=== PATIENT | female | born 1975 | race Caucasian/White ===

== ENCOUNTER 2016-09-20 14:19 | Inpatient (IN) | payer BC ==
[~2016-09-20] VITALS: Ht 167.6 cm; Wt 67.5 kg
[~2016-09-20 14:19] MED LIST: LEVEMIR SQ; NOVOLOGP2 SQ
[2016-09-20 16:00] VITALS: BP 147/90; PULSE 110; RESP 17; TEMP 98.5; O2SAT 98
[2016-09-20] MEDS ORDERED: MAGNESIUM HYDROXIDE SUSP 30 ML CUP PO PRN (17:00)
[2016-09-20] MEDS ORDERED: DEXTROSE 50% IN WATER 50 ML VIAL(D50) IV PRN (17:00)
[2016-09-20] MEDS ORDERED: BISACODYL 10 MG SUPP RECTAL PRN (17:00)
[2016-09-20] MEDS ORDERED: SODIUM CHLORIDE 0.9% FLUSH 10 ML FLUSH IV FLUSH PRN (17:00)
[2016-09-20] MEDS ORDERED: ONDANSETRON HCL 4 MG/2 ML VIAL IVP PRN (17:00)
[2016-09-20] MEDS ORDERED: traMADol HCL 50 MG TAB PO PRN (17:00)
[2016-09-20] MEDS ORDERED: SENNOSIDES 8.6 MG TAB PO PRN (17:00)
[2016-09-20] MEDS ORDERED: NALOXONE HCL 0.4 MG/ML AMP IV PRN (17:00)
[2016-09-20] MEDS: HEPARIN SODIUM - SQ 10,000 UNITS/ML VIAL SQ SCH ×2 (17:00→21:19)
[2016-09-20] MEDS ORDERED: GLUCAGON 1 MG/ML VIAL OTHER PRN (17:00)
[2016-09-20] MEDS ORDERED: ACETAMINOPHEN 325 MG TAB PO PRN (17:00)
[2016-09-20] MEDS ORDERED: LACTULOSE SYRUP 20 GM/30 ML CUP PO PRN (17:00)
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
[2016-09-20 20:00] VITALS: BP 141/65; PULSE 104; RESP 20; TEMP 98.7; O2SAT 97
--- NOTE | 2016-09-20 20:44 | RADRPT ---
EXAM DATE/TIME: 09/20/2016 20:26 [place] COMPARISON: No previous studies available for comparison. INDICATIONS : Left foot Ulceration MEDICAL HISTORY : Diabetes mellitus type II. SURGICAL HISTORY : None. ENCOUNTER: Initial ACUITY: 1 day PAIN SCORE: 2/10 LOCATION: Left foot FINDINGS: Three view examination of the left foot demonstrates soft tissue swelling grade involving the soft ti ssues between the first and second digits with subcutaneous emphysema. Arthropathy of the midfoot. No fracture. No periosteal reaction The calcaneus is intact. Bony mineralization is normal. CONCLUSION: Soft tissue swelling with subcutaneous edema involving the soft tissues of the first and second digit s.No definite osteomyelitis. Michele Freeman MD on September 20, 2016 at 20:41 Board Certified Radiologist. This report was verified electronically.
[2016-09-20] MEDS: DOCUSATE SODIUM 50 MG/SENNA 8.6 MG TAB PO SCH (21:00)
[2016-09-20] MEDS: INSULIN DETEMIR 100 UNITS/ML VIAL SQ SCH (21:17)
[2016-09-20] MEDS: INSULIN ASPART SUPPLEMENTAL SCALE SQ SCH (21:17)
[2016-09-20] MEDS: SODIUM CHLORIDE 0.9% FLUSH 10 ML FLUSH IV FLUSH SCH (21:18)
[2016-09-20] MEDS: ACETAMINOPHEN 325 MG TAB PO PRN (21:20)
[2016-09-21] VITALS: BP 131/60; PULSE 102; RESP 20; TEMP 97.3; O2SAT 98
[2016-09-21] MEDS: INSULIN ASPART SUPPLEMENTAL SCALE SQ SCH ×4 (04:49→21:22)
[2016-09-21 05:26] LABS: AUTOMATED NEUTROPHIL # 4.5 TH/MM3 (1.8-7.7); BASOPHIL % 0.5 % (0.0-2.0); EOSINOPHIL # 0.4 TH/MM3 (0-0.4); EOSINOPHIL % 4.4 % (0.0-4.0); HEMATOCRIT 31.6 % (35.0-46.0); HEMO FLAGS DIFF FINAL; LYMPH % 32.9 % (9.0-44.0); LYMPHOCYTE # 2.7 TH/MM3 (1.0-4.8); MEAN CELL VOLUME 87.6 FL (80.0-100.0); MEAN CORPUSCULAR HEMOGLOBIN 29.6 PG (27.0-34.0); MEAN CORPUSCULAR HGB CONC 33.8 % (32.0-36.0); MONO % 6.3 % (0.0-8.0); NEUT % 55.9 % (16.0-70.0); PLATELET COUNT 294 TH/MM3 (150-450); RED BLOOD COUNT 3.61 MIL/MM3 (4.00-5.30); RED CELL DISTRIBUTION WIDTH 12.1 % (11.6-17.2); WHITE BLOOD COUNT 8.1 TH/MM3 (4.0-11.0)
[2016-09-21 05:37] LABS: INTERNATIONAL NORMALIZED RATIO 0.9 RATIO; PROTHROMBIN TIME - PATIENT 10.2 SEC (9.8-11.6)
[2016-09-21 05:48] LABS: ANION GAP 7 MEQ/L (5-15); AST (GOT) 7 U/L (15-37); BICARBONATE 27.9 MEQ/L (21.0-32.0); BLOOD UREA NITROGEN 10 MG/DL (7-18); CHLORIDE 105 MEQ/L (98-107); GLOMERULAR FILTRATION RATE 160 ML/MIN (>89); POTASSIUM 3.6 MEQ/L (3.5-5.1); SODIUM (NA) 140 MEQ/L (136-145)
[2016-09-21 05:49] LABS: ALT (GPT) 12 U/L (10-53)
[2016-09-21 05:51] LABS: ALKALINE PHOSPHATASE 112 U/L (45-117); TOTAL BILIRUBIN ADULT 0.2 MG/DL (0.2-1.0)
[2016-09-21 08:00] VITALS: BP 159/70; PULSE 99; RESP 17; TEMP 97.5; O2SAT 98
[2016-09-21] MEDS: SODIUM CHLORIDE 0.9% FLUSH 10 ML FLUSH IV FLUSH SCH ×2 (08:22→22:48)
[2016-09-21] MEDS: DOCUSATE SODIUM 50 MG/SENNA 8.6 MG TAB PO SCH ×2 (08:22→21:00)
[2016-09-21] MEDS: HEPARIN SODIUM - SQ 10,000 UNITS/ML VIAL SQ SCH ×2 (08:22→16:48)
[2016-09-21] MEDS: INSULIN DETEMIR 100 UNITS/ML VIAL SQ SCH ×2 (09:00→21:22)
[2016-09-21 09:37] VITALS: BP 135/62; PULSE 93
--- NOTE | 2016-09-21 10:40 | HHI.PR ---
Subjective Remarks Follow-up for left foot infection. Patient has no complaints. She remains afebrile. Objective Vitals Vital Signs Date Time Temp Pulse Resp B/P Pulse Ox O2 Delivery O2 Flow Rate FiO2 09/21/16 09:37 93 135/62 09/21/16 08:00 97.5 99 17 159/70 98 09/21/16 00:00 97.3 102 20 131/60 98 09/20/16 20:00 98.7 104 20 141/65 97 09/20/16 16:00 98.5 110 17 147/90 98 I/O 09/20/16 09/20/16 09/20/16 09/21/16 09/21/16 09/21/16 07:00 15:00 23:00 07:00 15:00 23:00 Intake Total 240 ml 240 ml Balance 240 ml 240 ml Intake Oral 240 ml 240 ml IV Total 0 ml 0 ml # Voids 1 0 # Bowel Movements 0 0 Result Diagram: 09/21/1644209/21/16442 Objective Remarks Gen NAD CV RRR. no r/m/g Ext left foot positive for erythema between the first and second toes, with blistering and purulent drainage. Medications and IVs Current Medications Insulin Detemir (Levemir Inj) 15 units BID SQ Last administered on 09/20/16 21: 17; Start 09/20/16 at 21:00 Sodium Chloride (NS Flush) 2 ml UNSCH PRN IV FLUSH FLUSH AFTER USING IV ACCESS ; Start 09/20/16 at 17:00 Sodium Chloride (NS Flush) 2 ml BID IV FLUSH Last administered on 09/21/16 08: 22; Start 09/20/16 at 21:00 Acetaminophen (Tylenol) 650 mg Q4H PRN PO TEMP > 100.4; Start 09/20/16 at 17:00 Ondansetron HCl (Zofran Inj) 4 mg Q6H PRN IVP NAUSEA OR VOMITING; Start at 17:00 Heparin Sodium (Porcine) (Heparin Inj) 5,000 units Q8H SQ ; Start 09/20/16 at 17: 00 Naloxone HCl (Narcan Inj) 0.4 mg UNSCH PRN IV SEE LABEL COMMENTS; Start at 17:00 Senna/Docusate Sodium (Neena-Colace) 1 tab BID PO ; Start 09/20/16 at 21:00 Magnesium Hydroxide (Milk Of Magnesia Liq) 30 ml Q12H PRN PO MILD - MODERATE CONSTIPATION; Start 09/20/16 at 17:00 Sennosides (Senokot) 17.2 mg Q12H PRN PO MODERATE - SEVERE CONSTIPATION; Start 09/20/16 at 17:00 Bisacodyl (Dulcolax Supp) 10 mg DAILY PRN RECTAL SEVERE CONSITIPATION; Start at 17:00 Lactulose (Lactulose Liq) 30 ml DAILY PRN PO SEVERE CONSTIPATION; Start at 17:00 Dextrose (D50w (Vial) Inj) 50 ml UNSCH PRN IV HYPOGLYCEMIA-SEE COMMENTS; Start 09/20/16 at 17:00 Glucagon (Glucagon Inj) 1 mg UNSCH PRN OTHER HYPOGLYCEMIA-SEE COMMENTS; Start 09/20/16 at 17:00 Insulin Aspart (NovoLOG SUPPLEMENTAL SCALE) 1 ACHS SLIDING SCALE SQ Last administered on 09/20/16 21:17; Start 09/20/16 at 21:00 Acetaminophen (Tylenol) 650 mg Q4H PRN PO PAIN 1-4, DREW Last administered on 09/20 21:20; Start 09/20/16 at 17:00 Tramadol HCl (Ultram) 50 mg Q8H PRN PO PAIN SCALE 5 TO 10; Start 09/20/16 at 17: 00 A/P Assessment and Plan 41-year-old female with diabetes mellitus who presents for foot infection Diabetic foot ulcer with acute infection: Afebrile with no leukocytosis. Received vancomycin 1 in the ED. Consult podiatry and hold off on antibiotics for now if no further signs of systemic infection pending possible surgical cultures with podiatry. Elevate foot. Tylenol and tramadol as needed for pain. Diabetes mellitus: With recent noncompliance with insulin due to cost. Resume Levemir 15 units twice daily and NovoLog sliding scale. Monitor Accu-Cheks. Case management consult. History of sinus tachycardia: Heart rate is at baseline per patient. Check EKG. DVT prophylaxis: Heparin Discharge Planning Pending consult from life science technical officer. Patient will need continued hospitalization for treatment of the infection with IV antibiotics. Nelsy Flores MD Sep 21, 2016 10:40
--- NOTE | 2016-09-21 10:59 | EKG ---
Date Performed: 09/20/2016 Time Performed: 17:23:18 PTAGE: 41 years EKG: SINUS TACHYCARDIA MARKED LEFT AXIS DEVIATION ABNORMAL ECG NO PREVIOUS TRACING DOCTOR: Danny Scott Interpretating Date/Time 09/21/2016 10:58:02
[2016-09-21 12:00] VITALS: BP 162/73; PULSE 96; RESP 17; TEMP 97.9; O2SAT 96
[2016-09-21 16:00] VITALS: BP 142/67; PULSE 104; RESP 17; TEMP 98.4; O2SAT 99
[2016-09-21 20:00] VITALS: BP 143/65; PULSE 102; RESP 18; TEMP 98.5; O2SAT 96
[2016-09-21] MEDS ORDERED: TEMAZEPAM 7.5 MG CAP PO ONE (21:00)
[2016-09-21] MEDS ORDERED: Vancomycin Consult Pharmacy 1 EA OTHER SCH (21:00)
[2016-09-21] MEDS: ACETAMINOPHEN 325 MG TAB PO PRN (21:24)
[2016-09-21] MEDS: PIPERACIL-TAZO 3.375 GM PREMIX 50 ML IV SCH (22:48)
[2016-09-21] MEDS: VANCOMYCIN INJ 1,000 MG in SODIUM CHLOR 0.9% 250 ML INJ 250 ML IV SCH (22:49)
[2016-09-22] VITALS: BP 120/58; PULSE 80; RESP 17; TEMP 97.8; O2SAT 97
[2016-09-22] MEDS: HEPARIN SODIUM - SQ 10,000 UNITS/ML VIAL SQ SCH ×3 (00:13→16:52)
[2016-09-22 05:11] LABS: HEMATOCRIT 32.6 % (35.0-46.0); MEAN CELL VOLUME 87.9 FL (80.0-100.0); PLATELET COUNT 276 TH/MM3 (150-450); RED BLOOD COUNT 3.71 MIL/MM3 (4.00-5.30); REVIEW FLAG FINAL; WHITE BLOOD COUNT 7.4 TH/MM3 (4.0-11.0)
[2016-09-22] MEDS: PIPERACIL-TAZO 3.375 GM PREMIX 50 ML IV SCH ×3 (05:38→21:17)
[2016-09-22 05:39] LABS: BICARBONATE 27.7 MEQ/L (21.0-32.0); POTASSIUM 3.6 MEQ/L (3.5-5.1)
[2016-09-22] MEDS: INSULIN ASPART SUPPLEMENTAL SCALE SQ SCH ×4 (06:14→21:00)
[2016-09-22] MEDS: VANCOMYCIN INJ 1,000 MG in SODIUM CHLOR 0.9% 250 ML INJ 250 ML IV SCH ×2 (06:15→13:20)
[2016-09-22] MEDS: DOCUSATE SODIUM 50 MG/SENNA 8.6 MG TAB PO SCH ×2 (07:57→21:00)
[2016-09-22 08:00] VITALS: BP 131/62; PULSE 95; RESP 16; TEMP 97; O2SAT 98
[2016-09-22] MEDS: INSULIN DETEMIR 100 UNITS/ML VIAL SQ SCH ×2 (08:08→21:00)
[2016-09-22] MEDS: SODIUM CHLORIDE 0.9% FLUSH 10 ML FLUSH IV FLUSH SCH ×2 (08:08→21:10)
--- NOTE | 2016-09-22 08:30 | HHI.PR ---
Subjective Remarks f/u for left foot infection. patient had bedside I & D yesterday. She has no complaints. She was asking for insulin script on discharge so she can have insulin. her nurse is at the bedside. remains afebrile. per nurse [employer] Dean said for no one to unwrap the bandage and that she will monitor. Objective Vitals Vital Signs Date Time Temp Pulse Resp B/P Pulse Ox O2 Delivery O2 Flow Rate FiO2 09/22/16 00:00 97.8 80 17 120/58 97 09/22/16 00:00 Room Air 09/21/16 20:00 98.5 102 18 143/65 96 09/21/16 20:00 Room Air 09/21/16 16:00 98.4 104 17 142/67 99 09/21/16 12:00 97.9 96 17 162/73 96 09/21/16 09:37 93 135/62 I/O 09/21/16 09/21/16 09/21/16 09/22/16 09/22/16 09/22/16 07:00 15:00 23:00 07:00 15:00 23:00 Intake Total 240 ml 0 ml 530 ml 580 ml Balance 240 ml 0 ml 530 ml 580 ml Intake Oral 240 ml 0 ml 480 ml 280 ml IV Total 0 ml 50 ml 300 ml # Voids 0 2 2 2 # Bowel Movements 0 0 1 Result Diagram: 09/22/16 0454 09/22/16 0454 Objective Remarks Gen NAD CV RRR. no r/m/g Ext left foot in bandage and zaina wrap. Per nurse Pod stated did not unwrap. Medications and IVs Current Medications Insulin Detemir (Levemir Inj) 15 units BID SQ Last administered on 09/22/16 08: 08; Start 09/20/16 at 21:00 Sodium Chloride (NS Flush) 2 ml UNSCH PRN IV FLUSH FLUSH AFTER USING IV ACCESS ; Start 09/20/16 at 17:00 Sodium Chloride (NS Flush) 2 ml BID IV FLUSH Last administered on 09/22/16 08: 08; Start 09/20/16 at 21:00 Acetaminophen (Tylenol) 650 mg Q4H PRN PO TEMP > 100.4; Start 09/20/16 at 17:00 Ondansetron HCl (Zofran Inj) 4 mg Q6H PRN IVP NAUSEA OR VOMITING; Start at 17:00 Heparin Sodium (Porcine) (Heparin Inj) 5,000 units Q8H SQ Last administered on 09/22/16 07:59; Start 09/20/16 at 17:00 Naloxone HCl (Narcan Inj) 0.4 mg UNSCH PRN IV SEE LABEL COMMENTS; Start at 17:00 Senna/Docusate Sodium (Neena-Colace) 1 tab BID PO ; Start 09/20/16 at 21:00 Magnesium Hydroxide (Milk Of Magnesia Liq) 30 ml Q12H PRN PO MILD - MODERATE CONSTIPATION; Start 09/20/16 at 17:00 Sennosides (Senokot) 17.2 mg Q12H PRN PO MODERATE - SEVERE CONSTIPATION; Start 09/20/16 at 17:00 Bisacodyl (Dulcolax Supp) 10 mg DAILY PRN RECTAL SEVERE CONSITIPATION; Start at 17:00 Lactulose (Lactulose Liq) 30 ml DAILY PRN PO SEVERE CONSTIPATION; Start at 17:00 Dextrose (D50w (Vial) Inj) 50 ml UNSCH PRN IV HYPOGLYCEMIA-SEE COMMENTS; Start 09/20/16 at 17:00 Glucagon (Glucagon Inj) 1 mg UNSCH PRN OTHER HYPOGLYCEMIA-SEE COMMENTS; Start 09/20/16 at 17:00 Insulin Aspart (NovoLOG SUPPLEMENTAL SCALE) 1 ACHS SLIDING SCALE SQ Last administered on 09/22/16 06:14; Start 09/20/16 at 21:00 Acetaminophen (Tylenol) 650 mg Q4H PRN PO PAIN 1-4, DREW Last administered on 09/21 21:24; Start 09/20/16 at 17:00 Tramadol HCl (Ultram) 50 mg Q8H PRN PO PAIN SCALE 5 TO 10; Start 09/20/16 at 17: 00 Temazepam 7.5 mg 7.5 mg ONCE ONCE PO Last administered on 09/21/16 22:56; Start 09/21/16 at 21:00; Stop 09/21/16 at 21:01; Status DC Vancomycin HCl 1000 mg/Sodium Chloride 250 ml @ 250 mls/hr Q8HR IV Last administered on 09/22/16 06:15; Start 09/21/16 at 22:00 Pharmacy Profile Note 0 ml @ 0 mls/hr UNSCH OTHER ; Start 09/21/16 at 21:00 Piperacillin Sod/ Tazobactam Sod (Zosyn 3.375 Gm Premix) 50 ml @ 100 mls/hr Q8H IV Last administered on 09/22/16t 05:38; Start 09/21/16 at 21:00 Miscellaneous Information SPECIFIC LAB TO BE DRAWN:VANCO TROUGH DATE TO BE DRJesus.. ONCE ONCE .XX ; Start 09/22/16 at 21:45; Stop 09/22/16 at 21:46 A/P Assessment and Plan 41-year-old female with diabetes mellitus who presents for foot infection Diabetic foot ulcer with acute infection: -s/p I and D by Pod last night. Pending note. -on vancomycin and Zosyn pending cultures. Diabetes mellitus: -With recent noncompliance with insulin due to cost. -continue Levemir 15 units twice daily and NovoLog sliding scale. Monitor Accu- Cheks. -Will give patient 3 month supply of insulin. Patient told need to establish with a PCP. History of sinus tachycardia: -Resolved. DVT prophylaxis: Heparin Discharge Planning Patient requires continual hospitalization due to severity of infection. She is on IV antibiotics pending cultures. Nelsy Flores MD Sep 22, 2016 08:29
[2016-09-22 12:00] VITALS: BP 147/63; PULSE 94; RESP 17; TEMP 97.6; O2SAT 96
[2016-09-22 16:00] VITALS: BP 120/58; PULSE 95; RESP 17; TEMP 97.8; O2SAT 98
[2016-09-22 20:00] VITALS: BP 133/64; PULSE 92; RESP 17; TEMP 96.8; O2SAT 97
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
[2016-09-22] MEDS: ACETAMINOPHEN 325 MG TAB PO PRN (21:14)
[2016-09-22] MEDS ORDERED: PHARMACY ORDERED LAB ONE (21:45)
--- NOTE | 2016-09-22 21:57 | PD.POD ---
Subjective Podiatric Problems s/p left foot bedside I&D on 09/21/16. Patient states she is not having pain only a mild discomfort. She states that the foot looks much better then it has in the last two days. She denies any n/v/f/h/c/sob. Pain score: 2 Past Med/Surg/Social History Social History Smoking Status: Never Smoker Objective Vital Signs Vital Signs Date Time Temp Pulse Resp B/P Pulse Ox O2 Delivery O2 Flow Rate FiO2 09/22/16 20:00 96.8 92 17 133/64 97 09/22/16 16:00 97.8 95 17 120/58 98 09/22/16 12:00 97.6 94 17 147/63 96 09/22/16 08:00 97.0 95 16 131/62 98 09/22/16 00:00 97.8 80 17 120/58 97 09/22/16 00:00 Room Air Coded Allergies: No Known Allergies (Unverified , 09/20/16) Physical Exam Remarks Exam is unchanged from consult with except for the left foot wound: Left foot first interspace ulceration 2.0cm x 0.75cm x 0.75 cm with dorsal and plantar tunneling of 0.75cm, wound bed is fibro granular, deep probing but no exposed bone, mild serous drainage but no purulence, mild trevor wound erythema isolated to less then 0.5cm from the wound dorsally and decreased from yesterday Assessment & Plan A/P 1)left foot stage II/III ulcer with resolving cellulitis -s/p bedside I&D 09/21/16 -cont daily wound care with packing -cont iv abx until wound cxs are finalized and po abx can be determined -pt will need HHC at time of d/c as well as access to the [facility] for wound care and diabetes management -will cont to follow while in house, no surgical plans at this time Adriane Stafford DPM Sep 22, 2016 21:57
[2016-09-23] VITALS: BP 138/56; PULSE 92; RESP 20; TEMP 97.4; O2SAT 100
[2016-09-23] MEDS: HEPARIN SODIUM - SQ 10,000 UNITS/ML VIAL SQ SCH ×3 (01:02→17:02)
[2016-09-23] MEDS: VANCOMYCIN INJ 1,000 MG in SODIUM CHLOR 0.9% 250 ML INJ 250 ML IV SCH ×4 (01:02→22:08)
[2016-09-23] MEDS: PIPERACIL-TAZO 3.375 GM PREMIX 50 ML IV SCH ×3 (06:04→20:40)
[2016-09-23] MEDS: INSULIN ASPART SUPPLEMENTAL SCALE SQ SCH ×4 (06:05→21:00)
[2016-09-23 08:00] VITALS: BP 129/58; PULSE 91; RESP 18; TEMP 96.6; O2SAT 100
[2016-09-23] MEDS: DOCUSATE SODIUM 50 MG/SENNA 8.6 MG TAB PO SCH ×2 (09:00→20:39)
[2016-09-23] MEDS: SODIUM CHLORIDE 0.9% FLUSH 10 ML FLUSH IV FLUSH SCH ×2 (09:01→20:40)
[2016-09-23] MEDS: INSULIN DETEMIR 100 UNITS/ML VIAL SQ SCH ×2 (09:03→21:00)
--- NOTE | 2016-09-23 09:11 | HHI.PR ---
Subjective Remarks f/u for foot infection. patient has no complaints. BS running 90s-200s. no fevers. denied any pain. Objective Vitals Vital Signs Date Time Temp Pulse Resp B/P Pulse Ox O2 Delivery O2 Flow Rate FiO2 09/23/16 08:00 96.6 91 18 129/58 100 09/23/16 00:00 97.4 92 20 138/56 100 09/22/16 20:00 96.8 92 17 133/64 97 09/22/16 16:00 97.8 95 17 120/58 98 09/22/16 12:00 97.6 94 17 147/63 96 I/O 09/22/16 09/22/16 09/22/16 09/23/16 09/23/16 09/23/16 07:00 15:00 23:00 07:00 15:00 23:00 Intake Total 580 ml 540 ml 480 ml 516 ml Balance 580 ml 540 ml 480 ml 516 ml Intake Oral 280 ml 240 ml 480 ml 240 ml IV Total 300 ml 300 ml 276 ml # Voids 2 2 2 1 # Bowel Movements 0 Result Diagram: 09/22/16 0454 09/22/164 Objective Remarks Gen NAD CV RRR. no r/m/g Ext left foot in bandage and zaina wrap. Per nurse Pod stated did not unwrap. Medications and IVs Current Medications Insulin Detemir (Levemir Inj) 15 units BID SQ Last administered on 09/23/16 09: 03; Start 09/20/16 at 21:00 Sodium Chloride (NS Flush) 2 ml UNSCH PRN IV FLUSH FLUSH AFTER USING IV ACCESS ; Start 09/20/16 at 17:00 Sodium Chloride (NS Flush) 2 ml BID IV FLUSH Last administered on 09/23/16 09: 01; Start 09/20/16 at 21:00 Acetaminophen (Tylenol) 650 mg Q4H PRN PO TEMP > 100.4 Last administered on 09/22 11:59; Start 09/20/16 at 17:00 Ondansetron HCl (Zofran Inj) 4 mg Q6H PRN IVP NAUSEA OR VOMITING; Start at 17:00 Heparin Sodium (Porcine) (Heparin Inj) 5,000 units Q8H SQ Last administered on 09/23/16 09:01; Start 09/20/16 at 17:00 Naloxone HCl (Narcan Inj) 0.4 mg UNSCH PRN IV SEE LABEL COMMENTS; Start at 17:00 Senna/Docusate Sodium (Neena-Colace) 1 tab BID PO ; Start 09/20/16 at 21:00 Magnesium Hydroxide (Milk Of Magnesia Liq) 30 ml Q12H PRN PO MILD - MODERATE CONSTIPATION; Start 09/20/16 at 17:00 Sennosides (Senokot) 17.2 mg Q12H PRN PO MODERATE - SEVERE CONSTIPATION; Start 09/20/16 at 17:00 Bisacodyl (Dulcolax Supp) 10 mg DAILY PRN RECTAL SEVERE CONSITIPATION; Start at 17:00 Lactulose (Lactulose Liq) 30 ml DAILY PRN PO SEVERE CONSTIPATION; Start at 17:00 Dextrose (D50w (Vial) Inj) 50 ml UNSCH PRN IV HYPOGLYCEMIA-SEE COMMENTS; Start 09/20/16 at 17:00 Glucagon (Glucagon Inj) 1 mg UNSCH PRN OTHER HYPOGLYCEMIA-SEE COMMENTS; Start 09/20/16 at 17:00 Insulin Aspart (NovoLOG SUPPLEMENTAL SCALE) 1 ACHS SLIDING SCALE SQ Last administered on 09/22/16 21:00; Start 09/20/16 at 21:00 Acetaminophen (Tylenol) 650 mg Q4H PRN PO PAIN 1-4, DREW Last administered on 09/22 21:14; Start 09/20/16 at 17:00 Tramadol HCl (Ultram) 50 mg Q8H PRN PO PAIN SCALE 5 TO 10; Start 09/20/16 at 17: 00 Temazepam 7.5 mg 7.5 mg ONCE ONCE PO Last administered on 09/21/16 22:56; Start 09/21/16 at 21:00; Stop 09/21/16 at 21:01; Status DC Vancomycin HCl 1000 mg/Sodium Chloride 250 ml @ 250 mls/hr Q8HR IV Last administered on 09/23/16 06:38; Start 09/21/16 at 22:00 Pharmacy Profile Note 0 ml @ 0 mls/hr UNSCH OTHER ; Start 09/21/16 at 21:00 Piperacillin Sod/ Tazobactam Sod (Zosyn 3.375 Gm Premix) 50 ml @ 100 mls/hr Q8H IV Last administered on 09/23/16 06:04; Start 09/21/16 at 21:00 Miscellaneous Information SPECIFIC LAB TO BE DRAWN:VANCO TROUGH DATE TO BE DRJesus.. ONCE ONCE .XX Last administered on 09/22/16 21:45; Start 09/22/16 at 21: 45; Stop 09/22/16 at 21:46; Status DC A/P Assessment and Plan 41-year-old female with diabetes mellitus who presents for foot infection Diabetic foot ulcer with acute infection: -s/p I and D by Pod on 09/21/16. -on vancomycin and Zosyn pending cultures. Diabetes mellitus: -With recent noncompliance with insulin due to cost. BS labile so will continue with current regimen. -continue Levemir 15 units twice daily and NovoLog sliding scale. Monitor Accu- Cheks. -Will give patient 3 month supply of insulin. Patient told need to establish with a PCP. History of sinus tachycardia: -Resolved. DVT prophylaxis: Heparin Discharge Planning Patient requires continual hospitalization due to severity of infection. She is on IV antibiotics pending cultures. Nelsy Flores MD Sep 23, 2016 09:11
--- NOTE | 2016-09-23 11:57 | HHI.FF ---
Face to Face Verification Diagnosis: (1) Diabetic infection of left foot (2) Peripheral neuropathy Home Health Nursing Order: Medical education Signs/symptoms of disease process Diabetic education Medication education-adverse effect Wound care and dressing changes I have seen patient Stefani Willingham on 09/23/16. My clinical findings support the need for the requested home health care services because: Med compliance is questionable I certify that my clinical findings support that this patient is homebound because: Unsteady gait/balance Nelsy Flores MD Sep 23, 2016 11:57
[2016-09-23 12:00] VITALS: BP 146/77; PULSE 92; RESP 18; TEMP 97.6; O2SAT 99
[2016-09-23 16:00] VITALS: BP 119/72; PULSE 96; RESP 18; TEMP 97.6; O2SAT 97
[2016-09-23 20:00] VITALS: BP 121/56; PULSE 90; RESP 18; TEMP 97.5; O2SAT 98
[2016-09-24] VITALS: BP 122/58; PULSE 89; RESP 18; TEMP 96.6; O2SAT 99
[2016-09-24] MEDS: PIPERACIL-TAZO 3.375 GM PREMIX 50 ML IV SCH ×3 (05:07→22:39)
[2016-09-24] MEDS: HEPARIN SODIUM - SQ 10,000 UNITS/ML VIAL SQ SCH ×3 (05:09→18:50)
[2016-09-24] MEDS: INSULIN ASPART SUPPLEMENTAL SCALE SQ SCH ×4 (05:27→22:50)
[2016-09-24] MEDS: VANCOMYCIN INJ 1,000 MG in SODIUM CHLOR 0.9% 250 ML INJ 250 ML IV SCH ×3 (05:37→22:39)
[2016-09-24 08:00] VITALS: BP 139/67; PULSE 99; RESP 20; TEMP 96.4; O2SAT 100
--- NOTE | 2016-09-24 08:51 | HHI.PR ---
Subjective Remarks f/u for infection. patient stated he infection has drastically improved. Patient stated that the bandages were changed last night. She has pictures of the wound infection on her iPhone. Patient is asking for Restoril for her insomnia. Otherwise she may remains afebrile. Objective Vitals Vital Signs Date Time Temp Pulse Resp B/P Pulse Ox O2 Delivery O2 Flow Rate FiO2 09/24/16 08:00 96.4 99 20 139/67 100 09/24/16 00:00 96.6 89 18 122/58 99 09/23/16 20:00 97.5 90 18 121/56 98 09/23/16 16:00 97.6 96 18 119/72 97 09/23/16 12:00 97.6 92 18 146/77 99 I/O 09/23/16 09/23/16 09/23/16 09/24/16 09/24/16 09/24/16 07:00 15:00 23:00 07:00 15:00 23:00 Intake Total 516 ml 800 ml 720 ml 300 ml Output Total 2 ml 300 ml Balance 516 ml 798 ml 720 ml 0 ml Intake Oral 240 ml 800 ml 720 ml 240 ml IV Total 276 ml 60 ml Output Urine Total 300 ml Stool Total 2 ml # Voids 1 3 1 # Bowel Movements 0 0 Result Diagram: 09/22/16 0454 09/24/16 0457 Objective Remarks Gen NAD CV RRR. no r/m/g Ext left foot in bandage and zaina wrap. Pictures from last night showed left foot with erythema between the first and second toe with mild purulent discharge. Swelling has improved drastically. Medications and IVs Current Medications Insulin Detemir (Levemir Inj) 15 units BID SQ Last administered on 09/23/16 21: 00; Start 09/20/16 at 21:00 Sodium Chloride (NS Flush) 2 ml UNSCH PRN IV FLUSH FLUSH AFTER USING IV ACCESS ; Start 09/20/16 at 17:00 Sodium Chloride (NS Flush) 2 ml BID IV FLUSH Last administered on 09/23/16 20: 40; Start 09/20/16 at 21:00 Acetaminophen (Tylenol) 650 mg Q4H PRN PO TEMP > 100.4 Last administered on 09/22 11:59; Start 09/20/16 at 17:00 Ondansetron HCl (Zofran Inj) 4 mg Q6H PRN IVP NAUSEA OR VOMITING; Start at 17:00 Heparin Sodium (Porcine) (Heparin Inj) 5,000 units Q8H SQ Last administered on 09/24/16 05:09; Start 09/20/16 at 17:00 Naloxone HCl (Narcan Inj) 0.4 mg UNSCH PRN IV SEE LABEL COMMENTS; Start at 17:00 Senna/Docusate Sodium (Neena-Colace) 1 tab BID PO ; Start 09/20/16 at 21:00 Magnesium Hydroxide (Milk Of Magnesia Liq) 30 ml Q12H PRN PO MILD - MODERATE CONSTIPATION; Start 09/20/16 at 17:00 Sennosides (Senokot) 17.2 mg Q12H PRN PO MODERATE - SEVERE CONSTIPATION; Start 09/20/16 at 17:00 Bisacodyl (Dulcolax Supp) 10 mg DAILY PRN RECTAL SEVERE CONSITIPATION; Start at 17:00 Lactulose (Lactulose Liq) 30 ml DAILY PRN PO SEVERE CONSTIPATION; Start at 17:00 Dextrose (D50w (Vial) Inj) 50 ml UNSCH PRN IV HYPOGLYCEMIA-SEE COMMENTS; Start 09/20/16 at 17:00 Glucagon (Glucagon Inj) 1 mg UNSCH PRN OTHER HYPOGLYCEMIA-SEE COMMENTS; Start 09/20/16 at 17:00 Insulin Aspart (NovoLOG SUPPLEMENTAL SCALE) 1 ACHS SLIDING SCALE SQ Last administered on 09/23/16 21:00; Start 09/20/16 at 21:00 Acetaminophen (Tylenol) 650 mg Q4H PRN PO PAIN 1-4, DREW Last administered on 09/22 21:14; Start 09/20/16 at 17:00 Tramadol HCl (Ultram) 50 mg Q8H PRN PO PAIN SCALE 5 TO 10; Start 09/20/16 at 17: 00 Temazepam 7.5 mg 7.5 mg ONCE ONCE PO Last administered on 09/21/16 22:56; Start 09/21/16 at 21:00; Stop 09/21/16 at 21:01; Status DC Vancomycin HCl 1000 mg/Sodium Chloride 250 ml @ 250 mls/hr Q8HR IV Last administered on 09/24/16 05:37; Start 09/21/16 at 22:00 Pharmacy Profile Note 0 ml @ 0 mls/hr UNSCH OTHER ; Start 09/21/16 at 21:00 Piperacillin Sod/ Tazobactam Sod (Zosyn 3.375 Gm Premix) 50 ml @ 100 mls/hr Q8H IV Last administered on 09/24/16 05:07; Start 09/21/16 at 21:00 Miscellaneous Information SPECIFIC LAB TO BE DRAWN:VANCO TROUGH DATE TO BE DRJesus.. ONCE ONCE .XX Last administered on 09/22/16 21:45; Start 09/22/16 at 21: 45; Stop 09/22/16 at 21:46; Status DC A/P Assessment and Plan 41-year-old female with diabetes mellitus who presents for foot infection Diabetic foot ulcer with acute infection: -s/p I and D by Pod on 09/21/16. -Wound cultures growing MRSA and group B beta strep pending sensitivity. -on vancomycin and Zosyn. -Will continue IV antibiotics for 1-2 more days. -Per early childhood director pt will need HHC at time of d/c as well as access to the [facility] for wound care and diabetes management. Case management already aware of orders. Diabetes mellitus: -With recent noncompliance with insulin due to cost. BS labile so will continue with current regimen. -continue Levemir 15 units twice daily and NovoLog sliding scale. Monitor Accu- Cheks. -Will give patient 3 month supply of insulin. Patient's insurance runs out this month. Patient told need to establish with a PCP. History of sinus tachycardia: -Resolved. DVT prophylaxis: Heparin Discharge Planning Due to severity of wound infection patient requires IV antibiotics pending final wound cultures. Patient will also need 3 month supply of insulin upon discharge. Orders for home health for wound care already placed. Nelsy Flores MD Sep 24, 2016 08:51
[2016-09-24] MEDS ORDERED: TEMAZEPAM 7.5 MG CAP PO PRN (09:00)
[2016-09-24] MEDS: DOCUSATE SODIUM 50 MG/SENNA 8.6 MG TAB PO SCH ×2 (09:00→21:00)
[2016-09-24] MEDS: INSULIN DETEMIR 100 UNITS/ML VIAL SQ SCH ×2 (09:54→22:49)
[2016-09-24 12:00] VITALS: BP 144/66; PULSE 92; RESP 20; TEMP 97.3; O2SAT 99
[2016-09-24 16:00] VITALS: BP 150/70; PULSE 94; RESP 18; TEMP 97.6; O2SAT 100
[2016-09-24 20:00] VITALS: BP 160/74; PULSE 98; RESP 18; TEMP 98.5; O2SAT 99
[2016-09-24] MEDS: SODIUM CHLORIDE 0.9% FLUSH 10 ML FLUSH IV FLUSH SCH (22:40)
[2016-09-25] VITALS: BP 153/67; PULSE 87; RESP 18; TEMP 96.9; O2SAT 98
[2016-09-25] MEDS: HEPARIN SODIUM - SQ 10,000 UNITS/ML VIAL SQ SCH ×3 (01:56→17:16)
[2016-09-25] MEDS: VANCOMYCIN INJ 1,000 MG in SODIUM CHLOR 0.9% 250 ML INJ 250 ML IV SCH ×3 (06:45→21:24)
[2016-09-25] MEDS: PIPERACIL-TAZO 3.375 GM PREMIX 50 ML IV SCH (06:45)
[2016-09-25] MEDS: INSULIN ASPART SUPPLEMENTAL SCALE SQ SCH ×4 (06:51→21:35)
[2016-09-25 08:00] VITALS: BP 131/61; PULSE 89; RESP 18; TEMP 96.7; O2SAT 99
--- NOTE | 2016-09-25 08:31 | HHI.PR ---
Subjective Remarks This is a pleasant 41 y/o Female with DM II, who was admitted with foot Cellulitis, has history of Osteomyelitis in the right fourth toe status post Amputation, on IV Vancomycin, seen in her bedroom in the presence of female nurse Miss Quintero. pictures taken with her Cellphone about her last Wound care performed yesterday, not yet ready for discharge continue with good granulation, will discuss with Robotics Technician won't be able to get her for [facility]. Objective Vital Signs Date Time Temp Pulse Resp B/P Pulse Ox O2 Delivery O2 Flow Rate FiO2 09/25/16 07:37 Room Air 09/25/16 00:00 96.9 87 18 153/67 98 09/24/16 20:00 98.5 98 18 160/74 99 09/24/16 16:00 97.6 94 18 150/70 100 09/24/16 12:00 97.3 92 20 144/66 99 I/O 09/24/16 09/24/16 09/24/16 09/25/16 09/25/16 09/25/16 07:00 15:00 23:00 07:00 15:00 23:00 Intake Total 300 ml 1000 ml 480 ml 750 ml Output Total 300 ml 1600 ml 950 ml 950 ml Balance 0 ml -600 ml -470 ml -200 ml Intake Oral 240 ml 1000 ml 480 ml 450 ml IV Total 60 ml 300 ml Output Urine Total 300 ml 1600 ml 950 ml 950 ml # Bowel Movements 0 1 0 0 Result Diagram: 09/22/16 0454 09/24/16 0457 Imaging Last Impressions Foot X-Ray 09/20/16 0000 Signed Impressions: Service Date/Time: Tuesday, September 20, 2016 20:26 - CONCLUSION: Soft tissue swelling with subcutaneous edema involving the soft tissues of the first and second digits.No definite osteomyelitis. Michele Freeman MD Procedures Status post I and D bedside. Other Results Laboratory Tests Test 09/21/16 09/22/16 09/22/16 09/23/16 04:43 04:54 22:45 04:48 Neutrophils (%) (Auto) 55.9 % Lymphocytes (%) (Auto) 32.9 % Monocytes (%) (Auto) 6.3 % Eosinophils (%) (Auto) 4.4 % Basophils (%) (Auto) 0.5 % Neutrophils # (Auto) 4.5 TH/MM3 Lymphocytes # (Auto) 2.7 TH/MM3 Monocytes # (Auto) 0.5 TH/MM3 Eosinophils # (Auto) 0.4 TH/MM3 Basophils # (Auto) 0.0 TH/MM3 CBC Comment DIFF FINAL Differential Comment Prothrombin Time 10.2 SEC Prothromb Time International 0.9 RATIO Ratio Total Bilirubin 0.2 MG/DL Aspartate Amino Transf 7 U/L (AST/SGOT) Alanine Aminotransferase 12 U/L (ALT/SGPT) Alkaline Phosphatase 112 U/L Total Protein 6.7 GM/DL Albumin 2.3 GM/DL White Blood Count 7.4 TH/MM3 Red Blood Count 3.71 MIL/MM3 Hemoglobin 10.7 GM/DL Hematocrit 32.6 % Mean Corpuscular Volume 87.9 FL Mean Corpuscular Hemoglobin 29.0 PG Mean Corpuscular Hemoglobin 33.0 % Concent Red Cell Distribution Width 12.0 % Platelet Count 276 TH/MM3 Mean Platelet Volume 7.9 FL Sodium Level 139 MEQ/L Potassium Level 3.6 MEQ/L Chloride Level 105 MEQ/L Carbon Dioxide Level 27.7 MEQ/L Anion Gap 6 MEQ/L Blood Urea Nitrogen 12 MG/DL Random Glucose 183 MG/DL Calcium Level 8.6 MG/DL Vancomycin Level Trough 12.8 MCG/ML Erythrocyte Sedimentation Rate 74 mm/hr C-Reactive Protein 1.51 MG/DL Test 09/24/16 04:57 Creatinine 0.49 MG/DL Estimat Glomerular Filtration 138 ML/MIN Rate Objective Remarks GENERAL: Alert and oriented x 3. No Acute Distress. SKIN: Warm and dry. HEAD: Atraumatic. Normocephalic. EYES: Pupils equal and round. No scleral icterus. No injection or drainage. ENT: No nasal bleeding or discharge. Mucous membranes pink and moist. NECK: Trachea midline. No JVD. CARDIOVASCULAR: Regular rate and rhythm. RESPIRATORY: No accessory muscle use. Clear to auscultation. Breath sounds equal bilaterally. GASTROINTESTINAL: Abdomen soft, non-tender, nondistended. Hepatic and splenic margins not palpable. MUSCULOSKELETAL: Left foot dressed. NEUROLOGICAL: Awake and alert. No obvious cranial nerve deficits. Motor grossly within normal limits. Five out of 5 muscle strength in the arms and legs. Normal speech. PSYCHIATRIC: Appropriate mood and affect; insight and judgment normal. Medications and IVs Current Medications Medications (Trade) Dose Ordered Sig/[place] Route Start Time Stop Time Status Last Admin (Levemir Inj) 15 units BID SQ 09/20/16 21:00 09/24/16 22:49 (NS Flush) 2 ml UNSCH PRN IV FLUSH 09/20/16 17:00 (NS Flush) 2 ml BID IV FLUSH 09/20/16 21:00 09/24/16 22:40 (Tylenol) 650 mg Q4H PRN PO 09/20/16 17:00 09/22/16 11:59 (Zofran Inj) 4 mg Q6H PRN IVP 09/20/16 17:00 (Heparin Inj) 5,000 units Q8H SQ 09/20/16 17:00 09/25/16 01:56 (Narcan Inj) 0.4 mg UNSCH PRN IV 09/20/16 17:00 (Neena-Colace) 1 tab BID PO 09/20/16 21:00 (Milk Of Magnesia Liq) 30 ml Q12H PRN PO 09/20/16 17:00 (Senokot) 17.2 mg Q12H PRN PO 09/20/16 17:00 (Dulcolax Supp) 10 mg DAILY PRN RECTAL 09/20/16 17:00 (Lactulose Liq) 30 ml DAILY PRN PO 09/20/16 17:00 (D50w (Vial) Inj) 50 ml UNSCH PRN IV 09/20/16 17:00 (Glucagon Inj) 1 mg UNSCH PRN OTHER 09/20/16 17:00 (Tylenol) 650 mg Q4H PRN PO 09/20/16 17:00 09/22/16 21:14 Tramadol HCl 50 mg 50 mg Q8H PRN PO 09/20/16 17:00 Vancomycin HCl 1000 mg/Sodium Chloride 250 ml @ 250 mls/hr Q8HR IV 09/21/16 22:00 09/25/16 06:45 Pharmacy Profile Note 0 ml @ 0 mls/hr UNSCH OTHER 09/21/16 21:00 (Zosyn 3.375 Gm Premix) 50 ml @ 100 mls/hr Q8H IV 09/21/16 21:00 09/25/16 06:45 (Restoril) 7.5 mg HS PRN PO 09/24/16 09:00 A/P Assessment and Plan Diabetic Left foot ulcer with acute infection: -s/p I and D by Pod on 09/21/16. -Wound cultures growing MRSA and group B beta strep sensitivity in place -Vancomycin will continue even sensitivity states may change to Oral medicine, Discontinue Zosyn. -Per digital director pt will need [facility] at time of d/c as well as access to the [facility] for wound care and diabetes management. but not able to do so the patient has no Insurance, will follow if the Wound care may be done in House by Doctor Flores. Diabetes mellitus: Better control. -With recent noncompliance with insulin due to cost. BS labile so will continue with current regimen. -continue Levemir 15 units twice daily and NovoLog sliding scale. Monitor Accu- Cheks. -Will give patient 3 month supply of insulin. Patient's insurance runs out this month. Patient told need to establish with a PCP. DVT prophylaxis: Heparin Discharge Planning Will try to discharge tomorrow if wound care may be done inhouse by Doctor Flores. Jerry Iraheta MD Sep 25, 2016 08:31
[2016-09-25] MEDS: DOCUSATE SODIUM 50 MG/SENNA 8.6 MG TAB PO SCH ×2 (08:38→21:00)
[2016-09-25] MEDS: SODIUM CHLORIDE 0.9% FLUSH 10 ML FLUSH IV FLUSH SCH ×2 (08:54→21:24)
[2016-09-25] MEDS: INSULIN DETEMIR 100 UNITS/ML VIAL SQ SCH ×2 (08:59→21:34)
[2016-09-25 12:00] VITALS: BP 168/75; PULSE 95; RESP 16; TEMP 98.5; O2SAT 98
[2016-09-25 16:00] VITALS: BP 140/66; PULSE 94; RESP 16; TEMP 96.6; O2SAT 97
[2016-09-25 22:08] VITALS: BP 142/84; PULSE 97; RESP 20; TEMP 97.9; O2SAT 99
[2016-09-26] VITALS: BP 134/64; PULSE 93; RESP 20; TEMP 98.1; O2SAT 99
[2016-09-26] MEDS: VANCOMYCIN INJ 1,000 MG in SODIUM CHLOR 0.9% 250 ML INJ 250 ML IV SCH (05:48)
[2016-09-26] MEDS: INSULIN ASPART SUPPLEMENTAL SCALE SQ SCH ×2 (07:00→11:15)
[2016-09-26 08:00] VITALS: BP 141/66; PULSE 94; RESP 18; TEMP 97.3; O2SAT 99
[2016-09-26] MEDS: HEPARIN SODIUM - SQ 10,000 UNITS/ML VIAL SQ SCH ×2 (08:02)
[2016-09-26] MEDS: SODIUM CHLORIDE 0.9% FLUSH 10 ML FLUSH IV FLUSH SCH (08:03)
[2016-09-26] MEDS: DOCUSATE SODIUM 50 MG/SENNA 8.6 MG TAB PO SCH (08:03)
[2016-09-26] MEDS: INSULIN DETEMIR 100 UNITS/ML VIAL SQ SCH (08:11)
--- NOTE | 2016-09-26 08:11 | HHI.PR ---
Subjective Remarks This is a pleasant 41 y/o Female with DM II, who was admitted with foot Cellulitis, has history of Osteomyelitis in the right fourth toe status post Amputation, on IV Vancomycin, seen in her bedroom in the presence of female nurse Miss Quintero. pictures taken with her Cellphone about her last Wound care performed yesterday, not yet ready for discharge continue with good granulation, will discuss with Edge Glue Machine Tender won't be able to get her for [facility]. 09/26: Seen in her bedroom and discussed with Edge Glue Machine Tender the patient will go home on [facility] for wound care and follow with Podiatry specialist as outpatient, improving on actual care. No nausea vomit or diarrhea. Objective Vital Signs Date Time Temp Pulse Resp B/P Pulse Ox O2 Delivery O2 Flow Rate FiO2 09/26/16 00:00 98.1 93 20 134/64 99 09/25/16 22:08 97.9 97 20 142/84 99 09/25/16 16:00 96.6 94 16 140/66 97 09/25/16 12:00 98.5 95 16 168/75 98 I/O 09/25/16 09/25/16 09/25/16 09/26/16 09/26/16 09/26/16 07:00 15:00 23:00 07:00 15:00 23:00 Intake Total 750 ml 830 ml 480 ml 250 ml Output Total 950 ml 1000 ml 1000 ml 0 ml Balance -200 ml -170 ml -520 ml 250 ml Intake Oral 450 ml 480 ml 480 ml 0 ml IV Total 300 ml 350 ml 250 ml Output Urine Total 950 ml 1000 ml 1000 ml 0 ml # Bowel Movements 0 1 0 0 Result Diagram: 09/22/16 0454 09/26/16 0550 Imaging Last Impressions Foot X-Ray 09/20/16 0000 Signed Impressions: Service Date/Time: Tuesday, September 20, 2016 20:26 - CONCLUSION: Soft tissue swelling with subcutaneous edema involving the soft tissues of the first and second digits.No definite osteomyelitis. Michele Freeman MD Procedures Status post I and D bedside. Other Results Laboratory Tests Test 09/22/16 09/22/16 09/23/16 09/26/16 04:54 22:45 04:48 05:50 White Blood Count 7.4 TH/MM3 Red Blood Count 3.71 MIL/MM3 Hemoglobin 10.7 GM/DL Hematocrit 32.6 % Mean Corpuscular Volume 87.9 FL Mean Corpuscular Hemoglobin 29.0 PG Mean Corpuscular Hemoglobin 33.0 % Concent Red Cell Distribution Width 12.0 % Platelet Count 276 TH/MM3 Mean Platelet Volume 7.9 FL Sodium Level 139 MEQ/L Potassium Level 3.6 MEQ/L Chloride Level 105 MEQ/L Carbon Dioxide Level 27.7 MEQ/L Anion Gap 6 MEQ/L Blood Urea Nitrogen 12 MG/DL Random Glucose 183 MG/DL Calcium Level 8.6 MG/DL Vancomycin Level Trough 12.8 MCG/ML Erythrocyte Sedimentation Rate 74 mm/hr C-Reactive Protein 1.51 MG/DL Creatinine 0.48 MG/DL Estimat Glomerular Filtration 141 ML/MIN Rate Objective Remarks GENERAL: Alert and oriented x 3. No Acute Distress. SKIN: Warm and dry. HEAD: Atraumatic. Normocephalic. EYES: Pupils equal and round. No scleral icterus. No injection or drainage. ENT: No nasal bleeding or discharge. Mucous membranes pink and moist. NECK: Trachea midline. No JVD. CARDIOVASCULAR: Regular rate and rhythm. RESPIRATORY: No accessory muscle use. Clear to auscultation. Breath sounds equal bilaterally. GASTROINTESTINAL: Abdomen soft, non-tender, nondistended. Hepatic and splenic margins not palpable. MUSCULOSKELETAL: Left foot dressed. NEUROLOGICAL: Awake and alert. No obvious cranial nerve deficits. Motor grossly within normal limits. Five out of 5 muscle strength in the arms and legs. Normal speech. PSYCHIATRIC: Appropriate mood and affect; insight and judgment normal. Medications and IVs Current Medications Medications (Trade) Dose Ordered Sig/[facility] Route Start Time Stop Time Status Last Admin (Levemir Inj) 15 units BID SQ 09/20/16 21:00 09/26/16 08:11 (NS Flush) 2 ml UNSCH PRN IV FLUSH 09/20/16 17:00 (NS Flush) 2 ml BID IV FLUSH 09/20/16 21:00 09/26/16 08:03 (Tylenol) 650 mg Q4H PRN PO 09/20/16 17:00 09/22/16 11:59 (Zofran Inj) 4 mg Q6H PRN IVP 09/20/16 17:00 (Heparin Inj) 5,000 units Q8H SQ 09/20/16 17:00 09/26/16 08:02 (Narcan Inj) 0.4 mg UNSCH PRN IV 09/20/16 17:00 (Neena-Colace) 1 tab BID PO 09/20/16 21:00 (Milk Of Magnesia Liq) 30 ml Q12H PRN PO 09/20/16 17:00 (Senokot) 17.2 mg Q12H PRN PO 09/20/16 17:00 (Dulcolax Supp) 10 mg DAILY PRN RECTAL 09/20/16 17:00 (Lactulose Liq) 30 ml DAILY PRN PO 09/20/16 17:00 (D50w (Vial) Inj) 50 ml UNSCH PRN IV 09/20/16 17:00 (Glucagon Inj) 1 mg UNSCH PRN OTHER 09/20/16 17:00 (Tylenol) 650 mg Q4H PRN PO 09/20/16 17:00 09/22/16 21:14 (Ultram) 50 mg Q8H PRN PO 09/20/16 17:00 Temazepam 7.5 mg 7.5 mg HS PRN PO 09/24/16 09:00 09/26/16 00:00 Levofloxacin/ Dextrose 150 ml @ 100 mls/hr Q24H IV 09/26/16 09:00 09/26/16 09:13 (Cleocin Inj/NS Inj) 104 ml @ 208 mls/hr Q8H IV 09/26/16 10:00 A/P Assessment and Plan Diabetic Left foot ulcer with acute infection: -s/p I and D by Pod on 09/21/16. -Wound cultures growing MRSA and group B beta strep sensitivity in place -Vancomycin will continue even sensitivity states may change to Oral medicine, Discontinue Zosyn. -Per water sander pt will need [facility] at time of d/c as well as access to the [facility] for wound care and diabetes management. but not able to do so the patient has no Insurance, will follow if the Wound care may be done in House by Doctor Perez. switch to Clindamycin and Levaquin for the next 10 days and follow with PCP and Podiatry specialist as outpatient. Diabetes mellitus: Better control. -With recent noncompliance with insulin due to cost. BS labile so will continue with current regimen. -continue Levemir 15 units twice daily and NovoLog sliding scale. Monitor Accu- Cheks. -Will give patient 3 month supply of insulin. Patient's insurance runs out this month. Patient told need to establish with a PCP. DVT prophylaxis: Heparin Discharge Planning Discharge home today on [facility] for wound care. scripts in chart for Insulin, Insulin syringes, lancets, pain medicine and antibiotics. Jerry Iraheta MD Sep 26, 2016 08:11
[2016-09-26] MEDS ORDERED: CLIN1CAP6 PO (08:58)
[2016-09-26] MEDS ORDERED: LEVA750T9 PO (08:58)
[2016-09-26] MEDS ORDERED: ULTR50TA5 PO (08:58)
[2016-09-26] MEDS ORDERED: LEVOFLOXACIN 750 MG PREMIX INJ 150 ML IV SCH (09:00)
[2016-09-26] MEDS ORDERED: LEVEMIR SQ (09:04)
[2016-09-26] MEDS ORDERED: NOVOLOGP2 SQ (09:04)
[2016-09-26] MEDS ORDERED: CLINDAMYCIN INJ 600 MG in SODIUM CHLORIDE 0.9% INJ 100 ML IV SCH (10:00)
--- NOTE | 2016-09-26 10:05 | HHI.DS ---
Discharge Summary Admission Date Sep 20, 2016 at 16:29 Discharge Date: Sep 26, 2016 Admitting Diagnosis (1) Diabetic infection of left foot ICD Code: E11.69 Diagnosis: Principal (2) Peripheral neuropathy ICD Code: G62.9 Diagnosis: Principal Procedures status post I and D at bedside Brief History - From Admission 41-year-old female with diabetes mellitus who presents for foot infection. The patient states she noted a blister on her left foot approximately 2 days ago. She states that she has neuropathy with the diabetes, and did not notice the ulcer until 2 days ago, but it may been present longer. She doesn't really have any pain with the ulcer unless it's manipulated. She denies any fevers or chills. She states that the ulcer has been draining a clear fluid. She reports that her left leg has been swelling. She recently lost her insurance and has been off of her insulin for 4 weeks. She does have a history of osteomyelitis in the right fourth toe s/p amputation. She states that she used to follow with the computer hardware technician that worked out of [facility] in [place], but has not seen him in several years. She did receive a dose of IV vancomycin in the ED. CBC/BMP: 09/22/16 0454 09/26/16 0550 Significant Findings Laboratory Tests Test 09/24/16 09/26/16 04:57 05:50 Creatinine 0.49 MG/DL 0.48 MG/DL (0.50-1.00) (0.50-1.00) Imaging Last Impressions Foot X-Ray 09/20/16 0000 Signed Impressions: Service Date/Time: Tuesday, September 20, 2016 20:26 - CONCLUSION: Soft tissue swelling with subcutaneous edema involving the soft tissues of the first and second digits.No definite osteomyelitis. Michele Freeman MD PE at Discharge GENERAL: Alert and oriented x 3. No Acute Distress. SKIN: Warm and dry. HEAD: Atraumatic. Normocephalic. EYES: Pupils equal and round. No scleral icterus. No injection or drainage. ENT: No nasal bleeding or discharge. Mucous membranes pink and moist. NECK: Trachea midline. No JVD. CARDIOVASCULAR: Regular rate and rhythm. RESPIRATORY: No accessory muscle use. Clear to auscultation. Breath sounds equal bilaterally. GASTROINTESTINAL: Abdomen soft, non-tender, nondistended. Hepatic and splenic margins not palpable. MUSCULOSKELETAL: Left foot dressed. NEUROLOGICAL: Awake and alert. No obvious cranial nerve deficits. Motor grossly within normal limits. Five out of 5 muscle strength in the arms and legs. Normal speech. PSYCHIATRIC: Appropriate mood and affect; insight and judgment normal. Hospital Course This is a pleasant 41 y/o Female with DM II, who was admitted with foot Cellulitis, has history of Osteomyelitis in the right fourth toe status post Amputation, on IV Vancomycin, seen in her bedroom in the presence of female nurse Miss Quintero. pictures taken with her Cellphone about her last Wound care performed yesterday, not yet ready for discharge continue with good granulation, will discuss with Turf Grower won't be able to get her for [facility]. 09/26: Seen in her bedroom and discussed with Turf Grower the patient will go home on [facility] for wound care and follow with Podiatry specialist as outpatient, improving on actual care. No nausea vomit or diarrhea. Assessment and Plan Diabetic Left foot ulcer with acute infection: -s/p I and D by Pod on 09/21/16. -Wound cultures growing MRSA and group B beta strep sensitivity in place -Vancomycin will continue even sensitivity states may change to Oral medicine, Discontinue Zosyn. -Per computer hardware technician pt will need [facility] at time of d/c as well as access to the [facility] for wound care and diabetes management. but not able to do so the patient has no Insurance, will follow if the Wound care may be done in House by Doctor Perez. switch to Clindamycin and Levaquin for the next 10 days and follow with PCP and Podiatry specialist as outpatient. Diabetes mellitus: Better control. -With recent noncompliance with insulin due to cost. BS labile so will continue with current regimen. -continue Levemir 15 units twice daily and NovoLog sliding scale. Monitor Accu- Cheks. -Will give patient 3 month supply of insulin. Patient's insurance runs out this month. Patient told need to establish with a PCP. DVT prophylaxis: Heparin Discharge Planning Discharge home today on [facility] for wound care. scripts in chart for Insulin, Insulin syringes, lancets, pain medicine and antibiotics. Pt Condition on Discharge: Good Discharge Disposition: Disch w/ Home Health Serv Discharge Time: > 30 minutes Discharge Instructions DIET: Follow Instructions for: Diabetic Diet Activities you can perform: Regular-No Restrictions Jerry Iraheta MD Sep 26, 2016 10:05
[2016-09-26 12:00] VITALS: BP 169/73; PULSE 94; RESP 18; TEMP 96.7; O2SAT 97
[2016-10-08] MEDS ORDERED: CALC1TAB16 PO (13:25)
[2016-10-08] MEDS ORDERED: MULT-65 PO (13:25)
[2016-10-08] MEDS ORDERED: LACTCAP8 PO (13:25)
== END 2016-09-26 13:38 | disposition home health service (06) | DRG 638 ==
LOC: NEDDLT 14:19 → N07B 16:29
PROVIDERS: ADMIT Family Medicine; ATTEND Internal Medicine
DX: E11.621 Type 2 diabetes mellitus with foot ulcer (principal); L02.612 Cutaneous abscess of left foot; L97.529 Non-pressure chronic ulcer of other part of left foot with unspecified severity; E11.21 Type 2 diabetes mellitus with diabetic nephropathy; E11.42 Type 2 diabetes mellitus with diabetic polyneuropathy; L03.119 Cellulitis of unspecified part of limb; E11.610 Type 2 diabetes mellitus with diabetic neuropathic arthropathy; E11.65 Type 2 diabetes mellitus with hyperglycemia; G47.00 Insomnia, unspecified; Z79.4 Long term (current) use of insulin; Z89.421 Acquired absence of other right toe(s); Z91.14 Patient's other noncompliance with medication regimen
CPT/HCPCS: 73620; 73630; 76937; 80048; 80053; 80202; 82565; 82948; 85025; 85027; 85610; 85652; 85730; 86140; 86403; 87070; 87147; 87185; 87186; 87205; 93005; 96365; J1644; J1815; J1956; J2543; J3370; J7050; L3260